=== PATIENT | female | born 1955 | race Hispanic/Latino ===

== ENCOUNTER → 2021-03-12 | Outpatient (CLI) | payer OTHER | LOC: US 08:01 | PROVIDERS: ATTEND Family Medicine | DX: R10.9 Unspecified abdominal pain (principal); K76.0 Fatty (change of) liver, not elsewhere classified | CPT/HCPCS: 76700 ==

== ENCOUNTER → 2021-11-21 | Outpatient (CLI) | payer MEDICARE | LOC: DX 08:33 | PROVIDERS: ATTEND Family Medicine | DX: K21.9 Gastro-esophageal reflux disease without esophagitis (principal); Z20.822 Contact with and (suspected) exposure to COVID-19 | CPT/HCPCS: 74246; U0002 ==

== ENCOUNTER → 2023-02-23 | Day surgery (SDC) | payer MEDICARE ==
[2023-02-20 12:25] LABS: BASOPHILS % 0.6 % (0.0-1.0); EOSINOPHILS # (AUTO) 0.2 (0.0-0.4); EOSINOPHILS % 2.9 % (0.0-6.0); HEMATOCRIT 38.6 % (34.2-44.1); HEMOGLOBIN 12.6 g/dL (12.0-16.0); LYMPHOCYTES # (AUTO) 1.4 (1.0-3.2); LYMPHOCYTES % 20.4 % (18.0-39.1); MEAN CORPUSCULAR HGB CONC 32.6 g/dL (31-35); MEAN CORPUSCULAR VOLUME 95.1 fL (81-99); MONOCYTES # (AUTO) 0.6 (0.2-0.8); MONOCYTES % 8.6 % (4.4-11.3); NEUTROPHILS # (AUTO) 4.6 (2.1-6.9); NEUTROPHILS % 67.2 % (38.7-80.0); PLATELET COUNT 209 x10e3/uL (140-360); RED BLOOD COUNT 4.06 x10e6/uL (3.6-5.1); RED CELL DISTRIBUTION WIDTH 12.6 % (11.7-14.4)
[2023-02-20 13:04] LABS: ALBUMIN 3.2 g/dL (3.5-5.0); ALBUMIN/GLOBULIN RATIO 0.9 (0.8-2.0); ANION GAP 12.8 mmol/L (8-16); CALCIUM 8.7 mg/dL (8.4-10.2); CREATININE, SERUM 0.66 mg/dL (0.57-1.11); POTASSIUM 3.8 mmol/L (3.5-5.1)
[~2023-02-23] MED LIST: ACETAMINOPHEN 1000 MG/100 ML IV ONE; ATORVASTATIN CA20 MG PO; BUPIVACAINE 0.5%/EPI 30 ML SDV INJ ONE; DEXAMETHASONE SOD PHOS INJ 4 MG/ML SDV ONE; EPHEDRINE SULFATE INJ 50 MG/ML VIAL ONE; FENTANYL CITRATE/PF 100MCG/2 ML INJ ONE; GLYCOPYRROLATE INJ 0.2 MG/ML VIAL ONE; HYDROCHLOROTHIA25 MG PO; KETOROLAC TROMETHAMINE 30 MG/ML VIAL ONE; LACTATED RINGER'S 1,000 ML ONE; LANSOPRAZOLE30 MG PO; LIDOCAINE HCL 2% LOCAL INJ 5 ML SDV VIAL INJ ONE; LOSARTAN POTASS25 MG PO; MIDAZOLAM HCL 2 MG/2 ML VIAL ONE; NEOSTIGMINE 1 MG/ML 10ML VIAL ONE; ONDANSETRON HCL INJ 2MG/ML 2ML 2 MG/ML VIAL ONE; POVIDONE IODINE 0.05% 0.05 % ML PO ONE; PROPOFOL IV EMULSION 10 MG/ML 20 ML VIAL ONE; ROCURONIUM BROMIDE 10 MG/ML 5ML VIAL IV ONE; SEVOFLURANE INHAL SOLN 250 ML PEN BTL ONE
[2023-02-23 13:38] VITALS: BP 114/52
== END | disposition home or self-care (01) ==
LOC: OR 09:52
PROVIDERS: ATTEND Surgery
DX: K80.10 Calculus of gallbladder with chronic cholecystitis without obstruction (principal); K82.8 Other specified diseases of gallbladder; I10 Essential (primary) hypertension; Z01.810 Encounter for preprocedural cardiovascular examination; Z01.812 Encounter for preprocedural laboratory examination; Z01.818 Encounter for other preprocedural examination; Z79.899 Other long term (current) drug therapy
CPT/HCPCS: 36415; 47562; 71046; 80053; 85025; 88304; 93005; C1766; J0131; J1100; J1885; J2001; J2250; J2405; J2704; J2710; J3010; J7121

== ENCOUNTER 2025-02-02 17:20 | Observation (INO) | payer MEDICARE ==
[~2025-02-02] VITALS: Ht 152.4 cm; Wt 93.0 kg
[~2025-02-02 17:20] MED LIST changes: -ACETAMINOPHEN 1000 MG/100 ML IV ONE; -BUPIVACAINE 0.5%/EPI 30 ML SDV INJ ONE; -DEXAMETHASONE SOD PHOS INJ 4 MG/ML SDV ONE; -EPHEDRINE SULFATE INJ 50 MG/ML VIAL ONE; -FENTANYL CITRATE/PF 100MCG/2 ML INJ ONE; -GLYCOPYRROLATE INJ 0.2 MG/ML VIAL ONE; -KETOROLAC TROMETHAMINE 30 MG/ML VIAL ONE; -LACTATED RINGER'S 1,000 ML ONE; -LIDOCAINE HCL 2% LOCAL INJ 5 ML SDV VIAL INJ ONE; -MIDAZOLAM HCL 2 MG/2 ML VIAL ONE; -NEOSTIGMINE 1 MG/ML 10ML VIAL ONE; -ONDANSETRON HCL INJ 2MG/ML 2ML 2 MG/ML VIAL ONE; -POVIDONE IODINE 0.05% 0.05 % ML PO ONE; -PROPOFOL IV EMULSION 10 MG/ML 20 ML VIAL ONE; -ROCURONIUM BROMIDE 10 MG/ML 5ML VIAL IV ONE; -SEVOFLURANE INHAL SOLN 250 ML PEN BTL ONE
[2025-02-02 17:45] VITALS: PULSE 97; RESP 16; TEMP 98.3
[2025-02-02] MEDS ORDERED: SODIUM CHLORIDE FLUSH 10 ML SYR INJ PRN (19:45)
[2025-02-02] MEDS: ASPIRIN 81 MG CHEW TAB PO ONE (20:23)
[2025-02-02 23:30] VITALS: BP 126/66; PULSE 66; RESP 18; TEMP 98.7; O2SAT 97
[2025-02-03] VITALS (9 sets, daily range): BP systolic 111–133; BP diastolic 62–74; PULSE 56–80; RESP 18; TEMP 97.7–98.7; O2SAT 96–100
[2025-02-03 07:45] LABS: TROPONIN I 0.002 ng/mL (0-0.300)
[2025-02-03 08:09] LABS: CHOL/HDL RATIO 2.7 (3.0-3.6)
[2025-02-03 08:24] LABS: BASOPHILS % 0.4 % (0.0-1.0); EOSINOPHILS # (AUTO) 0.2 (0.0-0.4); EOSINOPHILS % 2.2 % (0.0-6.0); HEMATOCRIT 34.4 % (34.2-44.1); HEMOGLOBIN 11.5 g/dL (12.0-16.0); LYMPHOCYTES # (AUTO) 1.5 (1.0-3.2); LYMPHOCYTES % 21.1 % (18.0-39.1); MEAN CORPUSCULAR HEMOGLOBIN 32.2 pg (28-32); MEAN CORPUSCULAR HGB CONC 33.4 g/dL (31-35); MEAN CORPUSCULAR VOLUME 96.4 fL (81-99); MONOCYTES # (AUTO) 0.7 (0.2-0.8); MONOCYTES % 9.3 % (4.4-11.3); NEUTROPHILS # (AUTO) 4.6 (2.1-6.9); NEUTROPHILS % 66.6 % (38.7-80.0); PLATELET COUNT 185 x10e3/uL (140-360); RED BLOOD COUNT 3.57 x10e6/uL (3.6-5.1); RED CELL DISTRIBUTION WIDTH 13.3 % (11.7-14.4); WHITE BLOOD COUNT 6.97 x10e3/uL (4.8-10.8)
[2025-02-03 08:34] LABS: ANION GAP 12.3 mmol/L (8-16); CALCIUM 8.5 mg/dL (8.4-10.2); CREATININE, SERUM 0.67 mg/dL (0.57-1.11); MAGNESIUM 1.9 MG/DL (1.3-2.1); PHOSPHORUS 3.6 MG/DL (2.3-4.7); POTASSIUM 3.3 mmol/L (3.5-5.1)
[2025-02-03 08:55] LABS: ALBUMIN 2.6 g/dL (3.5-5.0); BILIRUBIN,DIRECT 0.2 mg/dL (0.0-0.5); BILIRUBIN,TOTAL 0.5 mg/dL (0.2-1.2); TOTAL PROTEIN 6.2 g/dL (6.5-8.1)
[2025-02-03] MEDS: PANTOPRAZOLE SOD 40 MG TABEC PO SCH (10:04)
[2025-02-03] MEDS: ASPIRIN 81 MG ENTERIC COATED PO SCH (10:12)
[2025-02-03] MEDS: METOPROLOL TARTRATE 25 MG TAB PO SCH (10:14)
[2025-02-03] MEDS ORDERED: REGADENOSON 0.4 MG/5 ML SYR IV ONE (15:05)
[2025-02-03] MEDS: ENOXAPARIN SOD INJ 40 MG/0.4 ML SYR SC SCH (17:44)
[2025-02-03] MEDS: FAMOTIDINE 20 MG TAB PO SCH (17:44)
[2025-02-03] MEDS: LOSARTAN POTASSIUM 25 MG TAB PO SCH (20:44)
[2025-02-03] MEDS: ATORVASTATIN 40 MG TAB PO SCH (20:44)
[2025-02-03] MEDS ORDERED: LOSARTAN POTASSIUM 25 MG TAB PO SCH (21:00)
[2025-02-04] VITALS: BP 121/63; PULSE 62; RESP 18; TEMP 98.2; O2SAT 97
[2025-02-04 00:36] VITALS: BP 126/66; PULSE 66; RESP 18; TEMP 98.7; O2SAT 98
[2025-02-04 04:00] VITALS: BP 113/63; PULSE 56; RESP 18; TEMP 97.1; O2SAT 97
[2025-02-04 06:35] LABS: BASOPHILS % 0.6 % (0.0-1.0); EOSINOPHILS # (AUTO) 0.2 (0.0-0.4); EOSINOPHILS % 2.1 % (0.0-6.0); HEMATOCRIT 36.8 % (34.2-44.1); HEMOGLOBIN 12.1 g/dL (12.0-16.0); LYMPHOCYTES # (AUTO) 1.6 (1.0-3.2); LYMPHOCYTES % 21.7 % (18.0-39.1); MEAN CORPUSCULAR HEMOGLOBIN 32.5 pg (28-32); MEAN CORPUSCULAR HGB CONC 32.9 g/dL (31-35); MEAN CORPUSCULAR VOLUME 98.9 fL (81-99); MONOCYTES # (AUTO) 0.6 (0.2-0.8); MONOCYTES % 8.2 % (4.4-11.3); NEUTROPHILS # (AUTO) 4.9 (2.1-6.9); PLATELET COUNT 184 x10e3/uL (140-360); RED BLOOD COUNT 3.72 x10e6/uL (3.6-5.1); RED CELL DISTRIBUTION WIDTH 13.1 % (11.7-14.4); WHITE BLOOD COUNT 7.23 x10e3/uL (4.8-10.8)
[2025-02-04 06:46] LABS: ANION GAP 12.3 mmol/L (8-16); CALCIUM 8.5 mg/dL (8.4-10.2); CREATININE, SERUM 0.68 mg/dL (0.57-1.11); MAGNESIUM 1.9 MG/DL (1.3-2.1); PHOSPHORUS 3.3 MG/DL (2.3-4.7)
[2025-02-04 06:53] LABS: TROPONIN I 0.014 ng/mL (0-0.300)
[2025-02-04 07:20] LABS: POTASSIUM 3.3 mmol/L (3.5-5.1)
[2025-02-04 09:39] VITALS: BP 143/84; PULSE 61; RESP 18; TEMP 97.9; O2SAT 97
[2025-02-04] MEDS: METOPROLOL SUCCINATE 25 MG TAB XL PO SCH (09:51)
[2025-02-04] MEDS: HYDROCHLOROTHIAZIDE 25 MG TAB PO SCH (09:52)
[2025-02-04] MEDS ORDERED: TOPROL XL25 MG PO (10:43)
[2025-02-04] MEDS ORDERED: ASPIRIN EC81 MG PO (10:43)
[2025-02-04] MEDS ORDERED: METFORMIN HCL500 MG PO (10:43)
[2025-02-04 12:16] VITALS: BP 136/69; PULSE 63; RESP 18; TEMP 97.9; O2SAT 98
== END 2025-02-04 12:30 | disposition home or self-care (01) ==
LOC: FSED 17:40 → ERHOLD 19:39 → MED/SURG3 23:59
PROVIDERS: ADMIT Internal Medicine; ATTEND Internal Medicine
DX: R07.89 Other chest pain (principal); I10 Essential (primary) hypertension; E11.9 Type 2 diabetes mellitus without complications; Z79.4 Long term (current) use of insulin; E78.5 Hyperlipidemia, unspecified; E66.9 Obesity, unspecified; Z68.41 Body mass index [BMI] 40.0-44.9, adult; M17.12 Unilateral primary osteoarthritis, left knee; I87.8 Other specified disorders of veins; R26.9 Unspecified abnormalities of gait and mobility
CPT/HCPCS: 36415 ×2; 70450; 71046; 78452; 80048 ×2; 80053; 80061; 80076; 82550 ×2; 82948; 83036; 83735 ×2; 84100 ×2; 84484 ×3; 85025 ×3; 93005; 93017; 93306; 93970; 99284; A9502; G0378 ×3; J1650; J2785; S0164 ×2; J2470

== ENCOUNTER 2025-03-28 12:20 | Emergency (ER) | payer MEDICARE ==
[~2025-03-28] VITALS: Ht 152.4 cm; Wt 93.0 kg
[2025-03-28 12:20] VITALS: TEMP 98.6
[~2025-03-28 12:20] MED LIST changes: -NITROGLYCERIN 0.4 MG SUBL ONE
[2025-03-28 12:51] LABS: BASOPHILS % 0.3 % (0.0-1.0); EOSINOPHILS # (AUTO) 0.1 (0.0-0.4); EOSINOPHILS % 0.6 % (0.0-6.0); HEMATOCRIT 37.1 % (34.2-44.1); HEMOGLOBIN 12.5 g/dL (12.0-16.0); LYMPHOCYTES # (AUTO) 1.5 (1.0-3.2); LYMPHOCYTES % 19.2 % (18.0-39.1); MEAN CORPUSCULAR HEMOGLOBIN 32.4 pg (28-32); MEAN CORPUSCULAR HGB CONC 33.7 g/dL (31-35); MEAN CORPUSCULAR VOLUME 96.1 fL (81-99); MONOCYTES # (AUTO) 0.6 (0.2-0.8); MONOCYTES % 7.5 % (4.4-11.3); NEUTROPHILS # (AUTO) 5.6 (2.1-6.9); PLATELET COUNT 203 x10e3/uL (140-360); RED BLOOD COUNT 3.86 x10e6/uL (3.6-5.1); WHITE BLOOD COUNT 7.77 x10e3/uL (4.8-10.8)
[2025-03-28 13:02] LABS: INR 0.91; PARTIAL THROMBOPLASTIN TIME 24.7 seconds (23.8-35.5); PROTHROMBIN TIME 12.8 seconds (11.9-14.5)
[2025-03-28 13:11] LABS: ALBUMIN 3.3 g/dL (3.5-5.0); ALBUMIN/GLOBULIN RATIO 0.9 (0.8-2.0); ANION GAP 15.6 mmol/L (8-16); BILIRUBIN,TOTAL 0.7 mg/dL (0.2-1.2); CALCIUM 8.7 mg/dL (8.4-10.2); CREATININE, SERUM 0.65 mg/dL (0.57-1.11); POTASSIUM 3.6 mmol/L (3.5-5.1)
[2025-03-28] MEDS: APIXABAN 5 MG TABLET PO ONE (13:15)
[2025-03-28] MEDS: SODIUM CHLORIDE 0.9% 500ML 500 ML IV ONE (13:16)
[2025-03-28 13:17] LABS: TROPONIN I 0.005 ng/mL (0-0.300)
[2025-03-28 13:30] VITALS: PULSE 53; RESP 14; O2SAT 100
== END 2025-03-28 14:32 | disposition home or self-care (01) ==
LOC: ER 12:26
DX: I26.99 Other pulmonary embolism without acute cor pulmonale (principal); I10 Essential (primary) hypertension; E11.9 Type 2 diabetes mellitus without complications; E78.5 Hyperlipidemia, unspecified; R94.31 Abnormal electrocardiogram [ECG] [EKG]
CPT/HCPCS: 36415; 80053; 82550; 83735; 83880; 84484; 85025; 85610; 85730; 93005; 99284; J7040

== ENCOUNTER → 2025-03-28 | Outpatient (REF) | payer MEDICARE ==
[~2025-03-28] MED LIST changes: +ASPIRIN EC81 MG PO; +METFORMIN HCL500 MG PO; +NITROGLYCERIN 0.4 MG SUBL ONE; +TOPROL XL25 MG PO
[2025-03-28 10:49] LABS: CREATININE, SERUM 0.64 mg/dL (0.57-1.11)
== END ==
LOC: CT 09:52
PROVIDERS: ATTEND Internal Medicine Cardiovascular Disease
DX: I20.9 Angina pectoris, unspecified (principal)
CPT/HCPCS: 36415; 75574; 82565; 84520